=== PATIENT | male | born 1965 | race Caucasian/White ===

== ENCOUNTER → 2019-05-24 | Outpatient (CLI) | payer OTHER ==
--- NOTE | 2019-05-24 17:15 | PCVCIMAG ---
APPROVED REPORT Study performed: 05/24/2019 13:01:12 EXAM: Comprehensive 2D, Doppler, and color-flow Echocardiogram Patient Location: Echo lab Status: routine BSA: 2.17 HR: 63 bpmBP: 126/84 mmHg Rhythm: RBBB Other Information Study Quality: Adequate Indications Abnormal ECG Pre-Op 2D Dimensions IVSd: 11.02 (7-11mm) LVDd: 43.11 mm PWd: 11.21 (7-11mm)Ascending Ao: 36.40 (22-36mm) LVDs: 30.08 (25-40mm) Left Atrium: 35.44 (27-40mm) Aortic Root: 35.04 mm LV Single Plane 4CH: 64.67 % LV Single Plane 2CH: 67.38 % Biplane EF: 66.3 % Volumes Left Atrial Volume (Systole) Single Plane 4CH: 58.93 mLSingle Plane 2CH: 53.86 mL LA ESV Index: 27.00 mL/m2 Aortic Valve AoV Peak Yifan.: 1.71 m/s AO Peak Gr.: 11.70 mmHgLVOT Max P.12 mmHg LVOT Max V: 1.13 m/s Mitral Valve E/A Ratio: 1.5 MV Decel. Time: 255.02 ms MV E Max Yifan.: 0.65 m/s MV A Yifan.: 0.42 m/s IVRT: 96.89 ms Pulmonary Valve PV Peak Yifan.: 1.14 m/sPV Peak Gr.: 5.23 mmHg Pulmonary Vein P Vein S: 0.33 m/sP Vein A: 0.28 m/s P Vein D: 0.46 m/sP Vein A Dur.: 152.2 msec P Vein S/D Ratio: 0.72 Tricuspid Valve TR Peak Yifan.: 2.50 m/s TR Peak Gr.: 25.07 mmHg Left Ventricle The left ventricle is normal size. There is normal LV segmental wall motion. There is normal left ventricular wall thickness. Left ventricular systolic function is normal. The left ventricular ejection fraction is within the normal range. LVEF is 65%. The left ventricular diastolic function is normal. Right Ventricle The right ventricle is normal size. The right ventricular systolic function is normal. Atria The left atrium size is normal. The right atrium size is normal. Aortic Valve The aortic valve is normal in structure. Trace aortic regurgitation. There is no aortic valvular stenosis. Mitral Valve The mitral valve is normal in structure. Trace mitral regurgitation. No evidence of mitral valve stenosis. Tricuspid Valve The tricuspid valve is normal in structure. Mild tricuspid regurgitation with PAP of 30 mmHg. Pulmonic Valve The pulmonary valve is normal in structure. There is no pulmonic valvular regurgitation. Great Vessels The aortic root is normal in size. IVC is normal in size and collapses >50% with inspiration. Pericardium There is no pericardial effusion. There is no pleural effusion. <Conclusion> Left ventricular systolic function is normal. There is normal LV segmental wall motion. LVEF is 65%. Normal diastolic function The aortic valve is normal in structure. Trace aortic regurgitation, no stenosis. The mitral valve is normal in structure. Trace mitral regurgitation. Mild tricuspid regurgitation with pulmonary artery pressure of 30 mmHg. There is no pericardial effusion.
== END | disposition home or self-care (01) ==
LOC: PCVCIMAG 13:19
PROVIDERS: ATTEND Internal Medicine
DX: Z01.818 Encounter for other preprocedural examination (principal); I07.1 Rheumatic tricuspid insufficiency; R94.31 Abnormal electrocardiogram [ECG] [EKG]; I10 Essential (primary) hypertension; E78.5 Hyperlipidemia, unspecified
CPT/HCPCS: 93306